=== PATIENT | female | born 1960 | race Caucasian/White ===

== ENCOUNTER → 2020-09-18 11:47 | Outpatient (BNVA) | payer SELFPAY | PROVIDERS: Family Provider Family Medicine; PCP Family Medicine; Visit Provider Family Medicine | DX: E55.9 Vitamin D deficiency, unspecified (principal); I10 Essential (primary) hypertension; Z13.6 Encounter for screening for cardiovascular disorders; Z86.39 Personal history of other endocrine, nutritional and metabolic disease | CPT/HCPCS: 80053; 80061; 82306; 85025 ==

== ENCOUNTER → 2020-11-08 11:30 | Outpatient (BNVA) | payer OTHER, SELFPAY | PROVIDERS: Family Provider Family Medicine; PCP Family Medicine; Visit Provider Family Medicine | DX: Z20.828 Contact with and (suspected) exposure to other viral communicable diseases (principal) | CPT/HCPCS: 87635 ==

== ENCOUNTER 2022-10-31 13:06 | Emergency (ER) | payer MEDICAID, SELFPAY ==
[2022-10-31 13:20] VITALS: BP 115/65; PULSE 84; RESP 16; TEMP 36.7; O2SAT 95
--- NOTE | 2022-10-31 15:02 | W.ED.NAVMDI ---
HPI - Nausea/Vomiting/Diarrhea General: Chief complaint: Nausea/Vomiting/Diarrhea Stated complaint: Not able to eat, abd pains Time Seen by Provider: 10/31/22 15:01 History of Present Illness: Ms. Fong is a 62-year-old lady with history of SVT and former tobacco use presenting to the emergency department due to abdominal pain with diarrhea, nausea, decreased p.o. intake. She primarily reports concern over bending dehydrated. Symptom onset was approximately 1 month ago without known specific provoking factor. Initially she believed that she just picked up a stomach virus from a family member however symptoms have persisted. Epigastric and left upper quadrant abdominal cramping associated with multiple episodes of diarrhea. Has led to decreased p.o. intake and generalized malaise and fatigue. Intensity symptoms is moderate. Course has worsened. No other specific changes in health, exacerbating, or alleviating factors identified. Onset (ago): month(s) Description of vomiting: watery Description of diarrhea: watery Associated nausea: Yes Associated abdominal pain: Yes Location of pain: Epigastric and LUQ Pain consistency: intermittent Severity: moderate Quality: aching and sharp Exacerbating factors: eating Relieving factors: none Associated symtoms: Reports nausea Review of Systems General: Reports: 10 or more systems reviewed and unremarkable except in HPI and below GI: Reports: nausea PFSH ED PFSH: Medical History SVT (supraventricular tachycardia) Surgical History H/O section H/O dilation and curettage S/P cholecystectomy Family History Other CAD (coronary artery disease) Cancer Social History Smoking and tobacco status: former smoker Alcohol intake: never Lives independently: Yes Household members: family Marital status: Single Physical Exam Const: COMMON NORMALS: alert GENERAL APPEARANCE: cooperative and well developed HENMT: COMMON NORMALS: normocephalic and atraumatic HEAD & SCALP: normocephalic and atraumatic Eye: COMMON NORMALS: conjunctivae normal CONJUNCTIVA: Yes conjunctivae normal SCLERA: sclerae normal Neck/C-Spine: COMMON NORMALS: supple GENERAL: Yes trachea midline Resp: COMMON NORMALS: clear to auscultation bilaterally EFFORT & INSPECTION: Yes able to speak in complete sentences AUSCULTATION: clear to auscultation bilaterally Cardio: COMMON NORMALS: regular rate and regular rhythm RATE: regular rate RHYTHM: regular rhythm GI: COMMON NORMALS: Soft to palpation PALPATION: Yes Soft to palpation, Yes Tenderness to palpation present (GI) Details: LUQ, No Guarding due to palpation present (GI) and No Rigid due to palpation Extremity: GENERAL: Yes normal exam except as noted and No edema Neuro: COMMON NORMALS: moves all extremities SENSORIUM/ORIENTATION: Yes alert and No Orientation impaired Psych: COMMON NORMALS: mental status grossly normal and Normal thought process present THOUGHT PROCESS: Normal thought process present Course Vital Signs: Vital signs: Vital Signs Temperature 98.0 F 10/31/22 13:20 Pulse Rate 84 10/31/22 13:20 Respiratory Rate 16 10/31/22 16:23 Blood Pressure 115/65 10/31/22 13:20 Pulse Oximetry 95 10/31/22 13:20 MDM - Nausea/Vomiting/Diarrhea Medical Decision Making 62-year-old lady presenting with progressively worsening abdominal symptoms over 1 week. Patient is nontoxic on exam with some generalized tenderness palpation of the abdomen without evidence of acute surgical abdomen. No significant hematologic or metabolic abnormalities on labs. Urinalysis difficult to interpret in the context of squamous epithelial contamination. CT with evidence of fluid stomach and bowel as well as mucosal enhancement without evidence of obstructive pathology. Incidental findings discussed with patient. Patient feels markedly improved with fluids, antiemetic, analgesia. Given duration of symptoms I believe that a bacterial pathology is likely and therefore patient will be treated with antibiotics. She feels comfortable with discharge and is able to tolerate p.o. intake. The results of ED evaluation were discussed with the patient including prescriptions and/or symptomatic cares (if applicable) including appropriate and responsible use, followup plan, and return precautions. The patient verbalized understanding and felt safe for discharge. Medical Records I reviewed the patient's medical records. Lab Data I reviewed the patient's lab results. 10/31/22 16:16 10/31/22 16:16 Radiology Impressions Abdomen/Pelvis CT 10/31/22 15:15 IMPRESSION: 1. Prominent fluid in the stomach and small bowel with mucosal enhancement without dilation suggestive of a gastroenteritis in the appropriate clinical setting. 2. Left hepatic lobe subcentimeter cyst. 3. Coronary artery atherosclerotic calcifications. 4. Bibasilar atelectasis. 5. Cholecystectomy. 6. Right kidney chronic atrophy. 7. Bilateral renal cysts, negative for follow-up advised. 8. Several bilateral nonobstructing renal calculi, measuring up to 16 mm in the right kidney lower pole, negative for hydronephrosis. COMMENTS: Consistent with the [employer]'s Incidental Findings Committee white paper (J Am Eva Radiol 2018): Any incidental renal lesion less than 1 cm or classified as too small to characterize, or any incidental cystic renal lesion characterized as simple-appearing, is likely benign. No follow-up imaging is recommended for these lesions per consensus recommendations based on imaging criteria. Laboratory Results WBC 9.9 10^3/uL (4.0-10.0) 10/31/22 16:16 RBC 4.71 10^6/uL (4.1-5.3) 10/31/22 16:16 Hgb 13.3 g/dL (11.5-15.3) 10/31/22 16:16 Hct 43.1 % (37.0-47.0) 10/31/22 16:16 MCV 91.5 fl (81-99) 10/31/22 16:16 MCH 28.2 pg (28.0-34.0) 10/31/22 16:16 MCHC 30.9 g/dL (30.0-36.0) 10/31/22 16:16 RDW 13.1 % (12.1-15.1) 10/31/22 16:16 Plt Count 266 10^3/cmm (130-400) 10/31/22 16:16 MPV 10.3 fL (7.4-10.4) 10/31/22 16:16 Neut % (Auto) 66.8 % 10/31/22 16:16 Lymph % (Auto) 23.1 % 10/31/22 16:16 [place] % (Auto) 7.4 % 10/31/22 16:16 Eos % (Auto) 2.0 % 10/31/22 16:16 Baso % (Auto) 0.4 % 10/31/22 16:16 Neut # (Auto) 6.60 10^3/uL (1.8-7.7) 10/31/22 16:16 Lymph # (Auto) 2.3 10^3/uL (0.8-4.8) 10/31/22 16:16 [place] # (Auto) 0.7 10^3/uL (0.2-0.9) 10/31/22 16:16 Eos # (Auto) 0.2 10^3/uL (0.0-0.8) 10/31/22 16:16 Baso # (Auto) 0.0 10^3/uL (0.0-0.1) 10/31/22 16:16 Nucleated RBC % (auto) 0 % 10/31/22 16:16 Nucleated RBCs # 0.0 /100WBC 10/31/22 16:16 Sodium 140 mmol/L (136-145) 10/31/22 16:16 Potassium 4.0 mmol/L (3.5-5.1) 10/31/22 16:16 Chloride 102 mmol/L (98-107) 10/31/22 16:16 Carbon Dioxide 27 mmol/L (22-29) 10/31/22 16:16 Anion Gap 15.0 (5-19) 10/31/22 16:16 BUN 8 mg/dL (8-23) 10/31/22 16:16 Creatinine 0.6 mg/dL (0.5-0.9) 10/31/22 16:16 GFR Calculation 100.6 mL/min (90-130) 10/31/22 16:16 Glucose 91 mg/dL (65-115) 10/31/22 16:16 Calculated Osmolality 288 mOsm/kg (285-295) 10/31/22 16:16 Calcium 9.6 mg/dL (8.5-10.5) 10/31/22 16:16 Magnesium 2.2 mg/dL (1.7-2.3) 10/31/22 16:16 Total Bilirubin 0.3 mg/dL (0.15-1.2) 10/31/22 16:16 AST 16 U/L (0-32) 10/31/22 16:16 ALT 17 U/L (0-33) 10/31/22 16:16 Alkaline Phosphatase 108 U/L (35-105) H 10/31/22 16:16 Total Protein 7.3 g/dL (6.6-8.7) 10/31/22 16:16 Albumin 4.4 g/dL (3.5-5.2) 10/31/22 16:16 Globulin 2.9 g/dL (1.3-4.6) 10/31/22 16:16 Lipase 30 U/L (13-60) 10/31/22 16:16 Urine Color Colorless (Yellow) 10/31/22 17:27 Urine Appearance Sl hazy (CLEAR) A 10/31/22 17:27 Urine pH 6.5 (5-7) 10/31/22 17:27 Ur Specific [place] 1.000 (1.005-1.030) L 10/31/22 17:27 Urine Protein Neg (Negative) 10/31/22 17:27 Urine Glucose (UA) Norm (Normal) 10/31/22 17:27 Urine Ketones 1+ (Negative) H 10/31/22 17:27 Urine Blood Neg (Negative) 10/31/22 17:27 Urine Nitrate Negative (Negative) 10/31/22 17:27 Urine Bilirubin Neg (Negative) 10/31/22 17:27 Urine Urobilinogen Norm mg/dL (Negative) 10/31/22 17:27 Ur Leukocyte Esterase 2+ (Negative) H 10/31/22 17:27 Urine RBC None /hpf (0-2) 10/31/22 17:27 Urine WBC 25-40 /hpf (0-5) H 10/31/22 17:27 Ur Squamous Epith Cells 15-25 /hpf (0-5) H 10/31/22 17:27 Amorphous Sediment Not Reportable 10/31/22 17:27 Urine Bacteria 2+ /hpf (NONE) H 10/31/22 17:27 Discharge Plan Discharge Patient Disposition: Home Clinical Impression: Bacterial enterocolitis Condition: Stable Prescriptions: No Action dicyclomine 10 mg capsule 10 mg PO QID Qty: 40 0RF amoxicillin-pot clavulanate 875-125 mg tablet 1 tab PO BID Qty: 10 0RF ondansetron 4 mg tablet,disintegrating 4 mg PO Q6H PRN (Reason: nausea and vomiting) Qty: 14 0RF carvedilol 3.125 mg tablet See Rx Instructions .ROUTE .COMPLEX Qty: 30 2RF Dose Instruction: TAKE 1 TABLET BY MOUTH EVERY DAY Rx Instructions: TAKE 1 TABLET BY MOUTH EVERY DAY Discharge Orders: Discharge ED (Routine); Ordered 10/31/22 Ordered By: Alejandro Wild Referrals: Jocelin Chambers DO [Primary Care Provider] - Discharge Diet: Advance as tolerated and Clear Liquid Discharge Activity: Increase activity as tolerated Patient Instructions: Colitis (ED), Enteritis (ED), Opioid Safety, Pain Management Activity Restrictions/Additional Instructions: Thank you for visiting the emergency department. You were seen and evaluated for diarrhea and abdominal pain. The exact cause of your symptoms is unclear though may be related to enterocolitis which is infection of the intestinal tract. Given duration of symptoms this will be treated with antibiotics. You may use [id number] medications such as acetaminophen and ibuprofen for pain however please do not exceed the daily recommended dosage as listed on the packaging and please keep in mind that many namebrand medications contain the same active ingredients. Please follow-up with your primary care provider. Return to the emergency department for uncontrolled symptoms or anything else that you are concerned about a feel needs emergency department evaluation. Coding Level of Care Code ED Enterostomal Therapy Nurse for [facility] Exam Comprehensive
--- NOTE | 2022-10-31 15:15 | CTR_ITS ---
PROCEDURE INFORMATION: Exam: CT Abdomen And Pelvis With Contrast Exam date and time: 10/31/2022 4:56 PM Age: 62 years old Clinical indication: Abdominal tenderness; Additional info: Luq/epigastric pain TECHNIQUE: Imaging protocol: Computed tomography of the abdomen and pelvis with contrast. Radiation optimization: All CT scans at this facility use at least one of these dose optimization techniques: automated exposure control; mA and/or kV adjustment per patient size (includes targeted exams where dose is matched to clinical indication); or iterative reconstruction. Contrast material: OMNIPAQUE 350; Contrast volume: 100 ml; Contrast route: INTRAVENOUS (IV); COMPARISON: CT angio chest w abd pel w con 08/01/2018 5:58 AM RADIATION DOSE METRICS: Total DLP (mGy-cm): 784.49 FINDINGS: Lungs: Bibasilar atelectasis. Heart: Coronary artery atherosclerotic calcifications. Liver: Left hepatic lobe subcentimeter cyst. Gallbladder and bile ducts: Cholecystectomy. Pancreas: Normal. No ductal dilation. Spleen: Normal. No splenomegaly. Adrenal glands: Normal. No mass. Kidneys and ureters: Right kidney chronic atrophy. Bilateral renal cysts, negative for follow-up advised. Several bilateral nonobstructing renal calculi, measuring up to 16 mm in the right kidney lower pole, negative for hydronephrosis. Stomach and bowel: Prominent fluid in the stomach and small bowel with mucosal enhancement without dilation suggestive of a gastroenteritis in the appropriate clinical setting. Appendix: No evidence of appendicitis. Intraperitoneal space: Unremarkable. No free air. No significant fluid collection. Vasculature: Unremarkable. No abdominal aortic aneurysm. Lymph nodes: Unremarkable. No enlarged lymph nodes. Urinary bladder: Unremarkable as visualized. Reproductive: Unremarkable as visualized. Bones/joints: Unremarkable. No acute fracture. Soft tissues: Unremarkable. CT/CT abdomen pelvis w con* [id number] IMPRESSION: 1. Prominent fluid in the stomach and small bowel with mucosal enhancement without dilation suggestive of a gastroenteritis in the appropriate clinical setting. 2. Left hepatic lobe subcentimeter cyst. 3. Coronary artery atherosclerotic calcifications. 4. Bibasilar atelectasis. 5. Cholecystectomy. 6. Right kidney chronic atrophy. 7. Bilateral renal cysts, negative for follow-up advised. 8. Several bilateral nonobstructing renal calculi, measuring up to 16 mm in the right kidney lower pole, negative for hydronephrosis. COMMENTS: Consistent with the [employer]'s Incidental Findings Committee white paper (J Am Eva Radiol 2018): Any incidental renal lesion less than 1 cm or classified as too small to characterize, or any incidental cystic renal lesion characterized as simple-appearing, is likely benign. No follow-up imaging is recommended for these lesions per consensus recommendations based on imaging criteria.
[2022-10-31 16:23] VITALS: RESP 16
[2022-10-31 16:23] LABS: Basophils % 0.4 %; Eosinophils # 0.2 10^3/uL (0.0-0.8); Hematocrit 43.1 % (37.0-47.0); Hemoglobin 13.3 g/dL (11.5-15.3); Lymphocytes # 2.3 10^3/uL (0.8-4.8); Lymphocytes % 23.1 %; Mean Corpuscular HGB Conc 30.9 g/dL (30.0-36.0); Mean Corpuscular Hemoglobin 28.2 pg (28.0-34.0); Mean Corpuscular Volume 91.5 fl (81-99); Mean Platelet Volume 10.3 fL (7.4-10.4); Monocytes # 0.7 10^3/uL (0.2-0.9); Monocytes % 7.4 %; Neutrophils % 66.8 %; Nucleated Red Blood Cells % 0 %; Platelet Count 266 10^3/cmm (130-400); Red Blood Count 4.71 10^6/uL (4.1-5.3); Red Cell Distribution Width 13.1 % (12.1-15.1); White Blood Count 9.9 10^3/uL (4.0-10.0)
[2022-10-31] MEDS: morphine 4 mg/mL SDV 1 mL IVP (16:23)
[2022-10-31] MEDS: sodium chloride 0.9% 1,000 ML 999 ML IV (16:24)
[2022-10-31 16:42] LABS: Alanine Aminotransferase 17 U/L (0-33); Albumin Level 4.4 g/dL (3.5-5.2); Alkaline Phosphatase 108 U/L (35-105); Aspartate Amino Transferase 16 U/L (0-32); Blood Urea Nitrogen 8 mg/dL (8-23); Calcium 9.6 mg/dL (8.5-10.5); Carbon Dioxide 27 mmol/L (22-29); Chloride 102 mmol/L (98-107); Globulin 2.9 g/dL (1.3-4.6); Glomerular Filtration Rate 100.6 mL/min (90-130); Glucose 91 mg/dL (65-115); Lipase 30 U/L (13-60); Magnesium 2.2 mg/dL (1.7-2.3); Osmolality Calculated 288 mOsm/kg (285-295); Sodium 140 mmol/L (136-145); Total Bilirubin 0.3 mg/dL (0.15-1.2); Total Protein 7.3 g/dL (6.6-8.7)
[2022-10-31] MEDS: iohexol 350 mg/mL 500 mL Btl (per mL) IV (16:59)
[2022-10-31 17:37] LABS: Urine Appearance SL Hazy (CLEAR); Urine Color Colorless (Yellow)
[2022-10-31 17:38] LABS: Add Urine Microscopic? YES; Bilirubin Urine Neg (Negative); Blood Urine Neg (Negative); Glucose Urine UA Norm (Normal); Ketones Urine 1+ (Negative); Leukocyte Esterase Urine 2+ (Negative); Nitrate Urine Negative (Negative); Protein Urine Neg (Negative); Urobilinogen Urine Norm (Negative); pH Urine 6.5 (5-7)
[2022-10-31 17:43] LABS: Add Urine Culture? No; Bacteria Urine 2+ /hpf; Squamous Epithelial Cell Urine 15-25 /hpf (0-5); WBC Urine 25-40 /hpf (0-5)
== END 2022-10-31 18:20 | disposition home or self-care (01) ==
PROVIDERS: Emergency Provider Emergency Medicine; PCP Family Medicine
DX: A04.9 Bacterial intestinal infection, unspecified (principal)
CPT/HCPCS: 36415; 74177; 80053; 81001; 83690; 83735; 85025; 96374; 99285; J2270; J7030; Q9967

== ENCOUNTER 2022-11-04 17:16 | Emergency (ER) | payer MEDICAID, SELFPAY ==
[2022-11-04 18:02] VITALS: BP 139/71; PULSE 89; TEMP 36.7; O2SAT 96; BMI 28.1
[2022-11-05] VITALS: BP 115/69; PULSE 80; RESP 16; O2SAT 95
[2022-11-05 00:05] LABS: Basophils # 0.1 10^3/uL (0.0-0.1); Basophils % 0.4 %; Eosinophils # 0.1 10^3/uL (0.0-0.8); Eosinophils % 0.8 %; Hematocrit 47.2 % (37.0-47.0); Hemoglobin 14.7 g/dL (11.5-15.3); Lymphocytes # 2.1 10^3/uL (0.8-4.8); Lymphocytes % 16.2 %; Mean Corpuscular HGB Conc 31.1 g/dL (30.0-36.0); Mean Corpuscular Hemoglobin 28.2 pg (28.0-34.0); Mean Corpuscular Volume 90.6 fl (81-99); Mean Platelet Volume 10.2 fL (7.4-10.4); Monocytes # 0.8 10^3/uL (0.2-0.9); Monocytes % 5.9 %; Neutrophils # 9.89 10^3/uL (1.8-7.7); Neutrophils % 76.4 %; Nucleated Red Blood Cells % 0 %; Platelet Count 320 10^3/cmm (130-400); Red Blood Count 5.21 10^6/uL (4.1-5.3); Red Cell Distribution Width 13.2 % (12.1-15.1); White Blood Count 12.9 10^3/uL (4.0-10.0)
[2022-11-05] MEDS: ondansetron 2 mg/ML SDV 2 mL 4 MG IVP (00:11)
[2022-11-05] MEDS: sodium chloride 0.9% 1,000 ML 999 ML IV (00:11)
--- NOTE | 2022-11-05 00:12 | W.ED.NAVMDI ---
HPI - Nausea/Vomiting/Diarrhea General: Chief complaint: Nausea/Vomiting/Diarrhea Stated complaint: N/V/D Time Seen by Provider: 11/04/22 23:53 Source: patient Mode of arrival: ambulatory Limitations: no limitations History of Present Illness: 62-year-old female states she been having nausea vomiting along with diarrhea over the last 7 to 8 days she states that she seen here last week diagnosed with an enteritis she had been on Cipro Flagyl states she continued abdominal cramping along with diarrhea she denies any fevers she denies any worsening improving factors. Denies any severe pain states her pain is currently 2 out of 10.. Associated nausea: Yes Associated symtoms: Reports nausea; Denies chest pain, dysuria or headache(s) Review of Systems Const: Denies: fever(s), chills, body aches or change in appetite Eyes: Denies: blurry vision or eye discomfort ENMT: Denies: throat pain or dental pain Card: Denies: chest pain Resp: Denies: dyspnea GI: Reports: abdominal pain, nausea and diarrhea : Denies: dysuria Musc: Denies: neck pain or back pain Skin/Breast: Denies: rash Neuro: Denies: headache(s) Psych: Denies: depression [place]/Lymph: Denies: easy bruising All/Imm: Denies: urticaria PFSH ED PFSH: Medical History SVT (supraventricular tachycardia) Surgical History H/O section H/O dilation and curettage S/P cholecystectomy Family History Other CAD (coronary artery disease) Cancer Social History Smoking and tobacco status: former smoker Alcohol intake: never Lives independently: Yes Household members: family Marital status: Single Physical Exam Const: COMMON NORMALS: no acute distress, patient oriented x3 and healthy appearing HENMT: COMMON NORMALS: normocephalic and atraumatic HEAD & SCALP: normocephalic and atraumatic Eye: COMMON NORMALS: Equal, round and reactive pupils present and EOMs intact bilaterally PUPIL: Yes Equal, round and reactive pupils present Neck/C-Spine: COMMON NORMALS: full ROM and supple Chest: COMMONS NORMALS: normal inspection of the chest and normal palpation of entire chest wall Resp: COMMON NORMALS: normal respiratory effort, No retractions, No use of accessory muscles and clear to auscultation bilaterally AUSCULTATION: clear to auscultation bilaterally Cardio: COMMON NORMALS: regular rate, regular rhythm and No murmurs present (Cardio) RATE: regular rate RHYTHM: regular rhythm GI: COMMON NORMALS: Normal to inspection, nondistended, normoactive bowel sounds present, Soft to palpation, non-tender and no masses PALPATION: Yes Soft to palpation Extremity: COMMON NORMALS: normal to inspection and full ROM Neuro: COMMON NORMALS: patient oriented x3, moves all extremities and no focal motor deficits Psych: COMMON NORMALS: mental status grossly normal, Normal thought process present and cooperative THOUGHT PROCESS: Normal thought process present Skin: COMMON NORMALS: no rashes or lesions noted and no wounds GENERAL SKIN EXAM: no rashes or lesions noted Course Vital Signs: Vital signs: Vital Signs Temperature 98.1 F 11/04/22 18:02 Pulse Rate 80 11/05/22 00:00 Respiratory Rate 16 11/05/22 00:00 Blood Pressure 115/69 11/05/22 00:00 Pulse Oximetry 95 11/05/22 00:00 Oxygen Delivery Me thod 11/05/22 00:00 MDM - Nausea/Vomiting/Diarrhea Medical Decision Making Patient presents here with vomiting diarrhea she is well-appearing here abdominal CT does shows no acute findings will follow stool culture she is stable for discharge she is to follow-up PCP and return if worsening. Lab Data 11/05/22 00:00 11/05/22 00:00 Radiology Impressions Abdomen/Pelvis CT 11/05/22 00:32 IMPRESSION: 1. Prominent fluid in the stomach, small bowel and colon suggestive of a gastroenterocolitis in the appropriate clinical setting. 2. Bibasilar atelectasis. 3. Cholecystectomy. 4. Left hepatic lobe cyst again suspected. 5. Bilateral punctate non-obstructing calyceal stones with a right kidney lower pole dominant nonobstructing 2 cm calculus, similar to prior exam. 6. Diverticulosis without diverticulitis. Laboratory Results WBC 12.9 10^3/uL (4.0-10.0) H 11/05/22 00:00 RBC 5.21 10^6/uL (4.1-5.3) 11/05/22 00:00 Hgb 14.7 g/dL (11.5-15.3) 11/05/22 00:00 Hct 47.2 % (37.0-47.0) H 11/05/22 00:00 MCV 90.6 fl (81-99) 11/05/22 00:00 MCH 28.2 pg (28.0-34.0) 11/05/22 00:00 MCHC 31.1 g/dL (30.0-36.0) 11/05/22 00:00 RDW 13.2 % (12.1-15.1) 11/05/22 00:00 Plt Count 320 10^3/cmm (130-400) 11/05/22 00:00 MPV 10.2 fL (7.4-10.4) 11/05/22 00:00 Neut % (Auto) 76.4 % 11/05/22 00:00 Lymph % (Auto) 16.2 % 11/05/22 00:00 [place] % (Auto) 5.9 % 11/05/22 00:00 Eos % (Auto) 0.8 % 11/05/22 00:00 Baso % (Auto) 0.4 % 11/05/22 00:00 Neut # (Auto) 9.89 10^3/uL (1.8-7.7) H 11/05/22 00:00 Lymph # (Auto) 2.1 10^3/uL (0.8-4.8) 11/05/22 00:00 [place] # (Auto) 0.8 10^3/uL (0.2-0.9) 11/05/22 00:00 Eos # (Auto) 0.1 10^3/uL (0.0-0.8) 11/05/22 00:00 Baso # (Auto) 0.1 10^3/uL (0.0-0.1) 11/05/22 00:00 Nucleated RBC % (auto) 0 % 11/05/22 00:00 Nucleated RBCs # 0.0 /100WBC 11/05/22 00:00 Sodium 140 mmol/L (136-145) 11/05/22 00:00 Potassium 4.4 mmol/L (3.5-5.1) 11/05/22 00:00 Chloride 105 mmol/L (98-107) 11/05/22 00:00 Carbon Dioxide 20 mmol/L (22-29) L 11/05/22 00:00 Anion Gap 19.4 (5-19) H 11/05/22 00:00 BUN 11 mg/dL (8-23) 11/05/22 00:00 Creatinine 0.7 mg/dL (0.5-0.9) 11/05/22 00:00 GFR Calculation 84.2 mL/min (90-130) L 11/05/22 00:00 Glucose 90 mg/dL (65-115) 11/05/22 00:00 Calculated Osmolality 289 mOsm/kg (285-295) 11/05/22 00:00 Calcium 9.7 mg/dL (8.5-10.5) 11/05/22 00:00 Total Bilirubin 0.4 mg/dL (0.15-1.2) 11/05/22 00:00 AST 15 U/L (0-32) 11/05/22 00:00 ALT 13 U/L (0-33) 11/05/22 00:00 Alkaline Phosphatase 115 U/L (35-105) H 11/05/22 00:00 Total Protein 7.4 g/dL (6.6-8.7) 11/05/22 00:00 Albumin 4.2 g/dL (3.5-5.2) 11/05/22 00:00 Globulin 3.2 g/dL (1.3-4.6) 11/05/22 00:00 Lipase 13 U/L (13-60) 11/05/22 00:00 Urine Color Yellow (Yellow) 11/05/22 00:00 Urine Appearance Cloudy (CLEAR) A 11/05/22 00:00 Urine pH 5 (5-7) 11/05/22 00:00 Ur Specific [place] 1.025 (1.005-1.030) 11/05/22 00:00 Urine Protein 2+ (Negative) H 11/05/22 00:00 Urine Glucose (UA) Norm (Normal) 11/05/22 00:00 Urine Ketones 3+ (Negative) H 11/05/22 00:00 Urine Blood 2+ (Negative) H 11/05/22 00:00 Urine Nitrate Negative (Negative) 11/05/22 00:00 Urine Bilirubin 1+ (Negative) H 11/05/22 00:00 Urine Urobilinogen Norm mg/dL (Negative) 11/05/22 00:00 Ur Leukocyte Esterase 2+ (Negative) H 11/05/22 00:00 Urine RBC 15-25 /hpf (0-2) H 11/05/22 00:00 Urine WBC 80-100 /hpf (0-5) H 11/05/22 00:00 Ur Squamous Epith Cells 25-40 /hpf (0-5) H 11/05/22 00:00 Calcium Oxalate Crystal 10-15 /hpf H 11/05/22 00:00 Amorphous Sediment Not Reportable 11/05/22 00:00 Urine Bacteria 3+ /hpf (NONE) H 11/05/22 00:00 Discharge Plan Discharge Patient Disposition: Home Clinical Impression: Diarrhea Condition: Stable Prescriptions: New ondansetron 4 mg tablet,disintegrating 4 mg PO Q6H PRN (Reason: nausea and vomiting) Qty: 14 0RF No Action carvedilol 3.125 mg tablet See Rx Instructions .ROUTE .COMPLEX Qty: 30 2RF Dose Instruction: TAKE 1 TABLET BY MOUTH EVERY DAY Rx Instructions: TAKE 1 TABLET BY MOUTH EVERY DAY ciprofloxacin HCl 500 mg tablet 250 mg PO BID Qty: 14 0RF metronidazole 500 mg tablet 500 mg PO Q8H 7 Days Qty: 21 0RF Pepcid 40 mg tablet 40 mg PO BID 5 Days Qty: 10 0RF oxycodone 5 mg tablet 5 mg PO Q4H PRN (Reason: pain) Qty: 10 0RF Discharge Orders: Discharge ED (Routine); Ordered 11/05/22 Ordered By: Maribel Vela Referrals: Jocelin Chambers DO [Primary Care Provider] - 1-3 days Discharge Diet: Advance as tolerated Discharge Activity: Resume usual activity Patient Instructions: Acute Diarrhea (ED) Coding Level of Care Code ED Php Wordpress Developer for Ch[employer] Fwd Exam Comprehensive
[2022-11-05 00:22] LABS: Alanine Aminotransferase 13 U/L (0-33); Albumin Level 4.2 g/dL (3.5-5.2); Alkaline Phosphatase 115 U/L (35-105); Aspartate Amino Transferase 15 U/L (0-32); Blood Urea Nitrogen 11 mg/dL (8-23); Calcium 9.7 mg/dL (8.5-10.5); Carbon Dioxide 20 mmol/L (22-29); Chloride 105 mmol/L (98-107); Globulin 3.2 g/dL (1.3-4.6); Glomerular Filtration Rate 84.2 mL/min (90-130); Glucose 90 mg/dL (65-115); Lipase 13 U/L (13-60); Osmolality Calculated 289 mOsm/kg (285-295); Sodium 140 mmol/L (136-145); Total Bilirubin 0.4 mg/dL (0.15-1.2); Total Protein 7.4 g/dL (6.6-8.7)
[2022-11-05 00:23] LABS: Anion Gap 19.4 (5-19); Potassium 4.4 mmol/L (3.5-5.1)
[2022-11-05] MEDS: diphenoxylate/atropine Tablet 1 TAB PO (00:26)
[2022-11-05 00:27] LABS: Add Urine Microscopic? YES; Bilirubin Urine 1+ (Negative); Blood Urine 2+ (Negative); Glucose Urine UA Norm (Normal); Ketones Urine 3+ (Negative); Leukocyte Esterase Urine 2+ (Negative); Nitrate Urine Negative (Negative); Protein Urine 2+ (Negative); Specific Gravity, Urine 1.025 (1.005-1.030); Urine Appearance Cloudy (CLEAR); Urine Color Yellow (Yellow); Urobilinogen Urine Norm (Negative); pH Urine 5 (5-7)
[2022-11-05 00:28] LABS: Bacteria Urine 3+ /hpf; RBC Urine 15-25 /hpf (0-2); Squamous Epithelial Cell Urine 25-40 /hpf (0-5); WBC Urine 80-100 /hpf (0-5)
[2022-11-05 00:29] LABS: Add Urine Culture? Yes
[2022-11-05 00:30] VITALS: BP 129/64; PULSE 80; RESP 16; O2SAT 98
--- NOTE | 2022-11-05 00:32 | CTR_ITS ---
PROCEDURE INFORMATION: Exam: CT Abdomen And Pelvis Without Contrast Exam date and time: 11/05/2022 12:39 AM Age: 62 years old Clinical indication: Nausea and vomiting; Abdominal pain; Generalized; Prior surgery; Surgery type: Gb. Csection; Patient HX: C/O persistent abd pain with n/v/d. Microhematuria. TECHNIQUE: Imaging protocol: Computed tomography of the abdomen and pelvis without contrast. Radiation optimization: All CT scans at this facility use at least one of these dose optimization techniques: automated exposure control; mA and/or kV adjustment per patient size (includes targeted exams where dose is matched to clinical indication); or iterative reconstruction. COMPARISON: CT abdomen pelvis w con* [id number] 10/31/2022 4:56 PM RADIATION DOSE METRICS: Total DLP (mGy-cm): 782.73 FINDINGS: Lungs: Bibasilar atelectasis. Liver: Left hepatic lobe cyst again suspected. Gallbladder and bile ducts: Cholecystectomy. Pancreas: Normal. No ductal dilation. Spleen: Normal. No splenomegaly. Adrenal glands: Normal. No mass. Kidneys and ureters: Bilateral punctate non-obstructing calyceal stones with a right kidney lower pole dominant nonobstructing 2 cm calculus, similar to prior exam. Stomach and bowel: Prominent fluid in the stomach, small bowel and colon suggestive of a gastroenterocolitis in the appropriate clinical setting. Diverticulosis without diverticulitis. Appendix: No evidence of appendicitis. Intraperitoneal space: Unremarkable. No free air. No significant fluid collection. Vasculature: Unremarkable. No abdominal aortic aneurysm. Lymph nodes: Unremarkable. No enlarged lymph nodes. Urinary bladder: Unremarkable as visualized. Reproductive: Unremarkable as visualized. Bones/joints: Unremarkable. No acute fracture. Soft tissues: Unremarkable. CT/CT kidney stone [id number] IMPRESSION: 1. Prominent fluid in the stomach, small bowel and colon suggestive of a gastroenterocolitis in the appropriate clinical setting. 2. Bibasilar atelectasis. 3. Cholecystectomy. 4. Left hepatic lobe cyst again suspected. 5. Bilateral punctate non-obstructing calyceal stones with a right kidney lower pole dominant nonobstructing 2 cm calculus, similar to prior exam. 6. Diverticulosis without diverticulitis.
[2022-11-05] MEDS: nitrofurantoin SR (BID) 100 mg Capsule PO (00:39)
[2022-11-05 00:56] VITALS: BP 128/57; PULSE 81; RESP 16; O2SAT 97
[2022-11-05 01:00] VITALS: BP 126/58; PULSE 77; RESP 16; O2SAT 98
[2022-11-05 01:30] VITALS: BP 139/57; PULSE 79; RESP 16; O2SAT 98
[2022-11-05] MEDS: HYDROcodone-acetaminophen 5-325 mg Tablet 1 TAB PO (01:38)
== END 2022-11-05 02:20 | disposition home or self-care (01) ==
PROVIDERS: Emergency Provider Emergency Medicine; PCP Family Medicine
DX: R19.7 Diarrhea, unspecified (principal); Z87.891 Personal history of nicotine dependence
CPT/HCPCS: 74176; 80053; 81001; 83690; 85025; 87493; 87506; 96361; 96374; 99285; J2405; J7030